=== PATIENT | male | born 1985 | race Caucasian/White ===

== ENCOUNTER 2024-12-02 04:32 | Emergency (ER) | payer SELFPAY ==
[~2024-12-02] VITALS: Ht 182.9 cm; Wt 85.0 kg
[2024-12-02 04:41] VITALS: O2SAT 100
[2024-12-02 05:42] LABS: BASOPHILS % 0.2 % (0.0-2.0); EOSINOPHILS % 0.4 % (0.0-5.0); HEMATOCRIT. 48.3 % (42.0-52.0); HEMOGLOBIN. 16.7 g/dL (14.0-18.0); LYMPHOCYTES % 13.4 % (20.0-50.0); MEAN CORPUSCULAR HEMOGLOBIN 30.9 pg (28.0-32.0); MEAN CORPUSCULAR HGB CONC 34.5 g/dL (31.0-37.0); MEAN CORPUSCULAR VOLUME 89.7 fL (80.0-94.0); MEAN PLATELET VOLUME 10.2 fl (7.4-10.4); MONOCYTES % 5.5 % (2.0-8.0); NEUTROPHILS % 80.5 % (40.0-76.0); PLATELET 187 x1000/uL (130-400); RED BLOOD CELL COUNT 5.38 mill/uL (4.7-6.1); RED CELL DISTRIBUTION WIDTH 13.5 % (11.6-14.6); WHITE BLOOD COUNT 9.1 x1000/uL (4.5-11.0)
[2024-12-02 05:58] LABS: POTASSIUM 3.8 mEq/L (3.5-5.1)
[2024-12-02 05:59] LABS: CALCIUM 9.6 mg/dL (8.7-10.4)
[2024-12-02 06:04] LABS: CREATININE 1.4 mg/dL (0.6-1.3)
[2024-12-02] MEDS: HYDROCODONE/ACETAMINOPHEN 10/325MG TABLET PO ONE (07:00)
[2024-12-02] MEDS: KETOROLAC 30MG/ML VIAL IM ONE (07:00)
[2024-12-02 09:38] LABS: CLARITY URINE CLOUDY (CLEAR); COLOR URINE YELLOW (YELLOW); GLUCOSE URINE NEGATIVE (NEGATIVE); KETONES URINE NEGATIVE (NEGATIVE); LEUKOCYTE ESTERASE URINE NEGATIVE (NEGATIVE); NITRITE URINE NEGATIVE (NEGATIVE); OCCULT BLOOD URINE 2+ (NEGATIVE); PH URINE 6.5 (4.5-8.0); PROTEIN URINE NEGATIVE (NEGATIVE); SPECIFIC GRAVITY URINE 1.022 (1.005-1.030)
[2024-12-02 09:54] LABS: BACTERIA URINE 1+; RBC URINE 15-25 /hpf (0-2); SQUAMOUS EPITHELIAL CELL URINE NONE SEEN /lpf (RARE/1+); YEAST URINE NONE SEEN
[2024-12-02] MEDS ORDERED: CEPH500T MT (11:03)
[2024-12-02] MEDS ORDERED: IBUP-2030 MT (11:03)
[2024-12-02] MEDS ORDERED: TAMS-11 MT (11:03)
[2024-12-02] MEDS: CEPHALEXIN 250MG CAPSULE PO ONE (11:17)
[2024-12-02 11:30] VITALS: BP 113/67; PULSE 70; RESP 16; TEMP 36.6; O2SAT 100
== END 2024-12-02 11:32 | disposition home or self-care (01) ==
LOC: ER 05:09
DX: N20.0 Calculus of kidney (principal); N13.30 Unspecified hydronephrosis
CPT/HCPCS: 99285; 74176; 80048; 81003; 85025; 36415; 96372; J1885